=== PATIENT | male | born 1995 | race Caucasian/White ===

== ENCOUNTER 2016-10-17 18:55 | Emergency (ER) | payer OTHER ==
[~2016-10-17] VITALS: Ht 177.8 cm; Wt 69.0 kg
[2016-10-17 19:08] VITALS: Ht 177.8 cm; Wt 69.0 kg
[2016-10-17] MEDS ORDERED: HYDR-3011 PO (19:23)
[2016-10-17] MEDS ORDERED: DOXY100T20 PO (19:23)
--- NOTE | 2016-10-17 19:28 | ERD ---
ER Documentation Chief Complaint Date/Time DATE: 10/17/16 TIME: 19:25 Chief Complaint swollen bug latoyae on his left arm HPI 21-year-old male presents here in emergency department for complaints of an insect bite on the left upper arm started yesterday. Patient's complaining of itching and pain, throbbing pain, 6/10 scale, is worse upon touching the area. Patient did not take any medications up symptoms. Patient denies any numbness or tingling. No recent trauma, denies hiking recently. Patient denies any encounter with deers. ROS All systems reviewed and are negative except as per history of present illness. Medications Home Meds Active Scripts Hydroxyzine Hcl* (Hydroxyzine Hcl*) 25 Mg Tablet, 25 MG PO Q8H Y for ITCHING, # 30 TAB Prov:CHELSEA PEREZ NP 10/17/16 Doxycycline Hyclate* (Doxycycline Hyclate*) 100 Mg Tablet.dr, 100 MG PO BID for 21 Days, TAB Prov:CHELSEA PEREZ NP 10/17/16 Allergies Allergies: Coded Allergies: No Known Allergy (Unverified , 10/17/16) PMhx/Soc Medical and Surgical Hx: pt denies Medical Hx, pt denies Surgical Hx FmHx Family History: No coronary disease, No diabetes, No other Physical Exam Vitals Vital Signs Date Time Temp Pulse Resp B/P Pulse Ox O2 Delivery O2 Flow Rate FiO2 10/17/16 19:08 98.2 80 20 104/50 98 Physical Exam GENERAL: The patient is well developed and appropriate for usual state of health, in no apparent distress. CHEST: Clear to auscultation bilaterally. There are no rales, wheezes or rhonchi. HEART: Regular rate and rhythm. No murmurs, clicks, rubs or gallops. No S3 or S4. ABDOMEN: Soft, nontender and nondistended. Good bowel sounds. No rebound or guarding. No gross peritonitis. No gross organomegaly or masses. No Najera sign or McBurney point tenderness. BACK: No midline or flank tenderness. EXTREMITIES: Equal pulses bilaterally. There is no peripheral clubbing, cyanosis or edema. No focal swelling or erythema. Full range of motion. Grossly neurovascularly intact. NEURO: Alert and oriented. Cranial nerves 2-12 intact. Motor strength in all 4 extremities with 5/5 strength. Sensation grossly intact. Normal speech and gait. SKIN: No target lesion on the left upper arm, mild tenderness on palpation, patient seemed to be consistent with erythema migrans. There is no apparent ecchymosis or petechia. The skin is warm and dry. HEMATOLOGIC AND LYMPHATIC: There is no evidence of excessive bruising or lymphedema. No gross cervical, axillary, or inguinal lymphadenopathy. Procedures/MDM Medical decision making: Patient's rash nonspecific at this time of having infected insect bite, can be early symptoms of Lyme disease, patient's rash appears to be target-like lesion erythema migrans, no symptoms of neurovascular compromise, no symptoms of neuromuscular emergencies, no symptoms of sepsis at this time. Patient was given for hydroxyzine, doxycycline, is advised to follow- up with primary care doctor in 2-3 days for reevaluation of symptoms, patient was given instructions about worsening symptoms of Lyme disease, to return to emergency department if symptoms arise. Patient is advised to return to emergency department for any worsening symptoms. Departure Diagnosis: Primary Impression: Infected insect bite Encounter type: initial encounter Qualified Code: W57.XXXA - Infected insect bite, initial encounter Condition: Stable Patient Instructions: Preventing Lyme Disease, Insect Sting/Bite, Infected, Lyme Disease CHELSEA PEREZ NP October 17, 2016 19:28
== END 2016-10-17 19:28 | disposition home or self-care (01) ==
LOC: E/R 18:55
DX: S40.862A Insect bite (nonvenomous) of left upper arm, initial encounter (principal); W57.XXXA Bitten or stung by nonvenomous insect and other nonvenomous arthropods, initial encounter; Y92.9 Unspecified place or not applicable
CPT/HCPCS: 99284

== ENCOUNTER 2016-12-02 14:29 | Emergency (ER) | payer OTHER ==
[~2016-12-02] VITALS: Ht 165.1 cm; Wt 68.5 kg
[~2016-12-02 14:29] MED LIST: DOXY100T20 PO; HYDR-3011 PO
[2016-12-02 14:33] VITALS: Ht 165.1 cm; Wt 68.5 kg
[2016-12-02] MEDS ORDERED: CETI10CA PO (14:43)
[2016-12-02] MEDS ORDERED: AMOX1TAB10 PO (14:43)
[2016-12-02] MEDS ORDERED: FLUT9.9S NASAL (14:43)
[2016-12-02] MEDS ORDERED: BENZ100C70 PO (14:43)
--- NOTE | 2016-12-02 14:49 | ERD ---
ER Documentation Chief Complaint Date/Time DATE: 12/02/16 TIME: 14:47 Chief Complaint Complains of Ear pain x 4 days HPI 21-year-old male comes to the emergency room with cough for 9 days and left- sided ear pain for the past 3-4 days. He has had a dry cough, no hemoptysis. Itching in the back of his throat, however no pain or trouble swallowing. He denies any fevers, shortness breath, chest pain. Denies recent travel. ROS All systems reviewed and are negative except as per history of present illness. Medications Home Meds Active Scripts Benzonatate* (Tessalon Perle*) 100 Mg Capsule, 100 MG PO Q8H Y for COUGH, #30 CAP Prov:RENATA LOOMIS PA-C 12/02/16 Fluticasone Propionate (Flonase Allergy Relief) 9.9 Ml [place].susp, 1 SPRAY NASAL BID, #1 BOTTLE TO EACH NOSTRIL Prov:RENATA LOOMIS PA-C 12/02/16 Cetirizine Hcl* (Zyrtec*) 10 Mg Capsule, 10 MG PO DAILY, #10 TAB.CHEW Prov:RENATA LOOMIS PA-C 12/02/16 Amoxicillin/Potassium Clav (Amox-Clav 875-125 mg Tablet) 875-125 mg Tab, 1 TAB PO BID for 7 Days, #14 TAB Prov:RENATA LOOMIS PA-C 12/02/16 Hydroxyzine Hcl* (Hydroxyzine Hcl*) 25 Mg Tablet, 25 MG PO Q8H Y for ITCHING, # 30 TAB Prov:CHELSEA PEREZ NP 10/17/16 Doxycycline Hyclate* (Doxycycline Hyclate*) 100 Mg Tablet.dr, 100 MG PO BID for 21 Days, TAB Prov:CHELSEA PEREZ NP 10/17/16 Allergies Allergies: Coded Allergies: No Known Allergy (Unverified , 10/17/16) PMhx/Soc Medical and Surgical Hx: pt denies Medical Hx, pt denies Surgical Hx Hx Alcohol Use: Yes (socially) Hx Substance Use: No Hx Tobacco Use: No Physical Exam Vitals Vital Signs Date Time Temp Pulse Resp B/P Pulse Ox O2 Delivery O2 Flow Rate FiO2 12/02/16 14:33 98.3 103 20 130/73 97 Physical Exam General: Well-developed, well-nourished. The patient appears in no acute distress. HEENT: Head is normocephalic, atraumatic. No scleral icterus. Left tympanic membrane is erythematous and bulging, no perforation, otorrhea or discharge, right ear is unremarkable, mastoids are nontender Neck: Supple. Nontender. Lungs: Clear to auscultation. Normal air movement. Heart: Regular rate and rhythm. S1 and S2 are normal. No murmurs, gallops, or rubs. Abdomen: Nondistended. Extremities: No clubbing or cyanosis. Moving extremities x 4. No weakness. Neurologic: Alert and oriented 3. No focal deficits. Normal speech and gait. Skin: Normal turgor. No rash or lesions. Procedures/MDM The patient is a 21-year-old male who comes in with an acute upper respiratory infection, versus acute bronchitis, and presents a left otitis media. The patient has a differential diagnosis of a viral upper respiratory infection, bacterial upper respiratory infection, bronchitis, pneumonia, pharyngitis, laryngitis, epiglottitis, croup, pneumonia. Patient has a normal pulmonary examination, clear breath sounds, normal pulse oximetry, with no corrective measures needed at this time. Fluids, rest, antipyretics were encouraged. Departure Diagnosis: Primary Impression: Otitis media Additional Impression: Bronchitis Condition: Good Patient Instructions: Bronchitis, Antiobiotic Treatment (Adult), Otitis Media, Abx Tx (Adult) Additional Instructions: Call your primary care doctor TOMORROW for an appointment during the next 1-2 days.See the doctor sooner or return here if your condition worsens before your appointment time. RENATA LOOMIS PA-C Dec 02, 2016 14:49
== END 2016-12-02 14:41 | disposition home or self-care (01) ==
LOC: E/R 14:29
DX: H66.92 Otitis media, unspecified, left ear (principal); J20.9 Acute bronchitis, unspecified
CPT/HCPCS: 99284

== ENCOUNTER 2016-12-08 20:19 | Emergency (ER) | payer OTHER ==
[~2016-12-08] VITALS: Ht 180.3 cm; Wt 67.5 kg
[~2016-12-08 20:19] MED LIST changes: +AMOX1TAB10 PO; +BENZ100C70 PO; +CETI10CA PO; +FLUT9.9S NASAL
[2016-12-08 20:22] VITALS: Ht 180.3 cm; Wt 67.5 kg
[2016-12-08] MEDS ORDERED: PENICILLIN G BENZ 1.2 MIL UNIT SYG IM ONE (21:00)
[2016-12-08] MEDS ORDERED: IBUP-1542 PO (21:08)
[2016-12-08] MEDS ORDERED: IBUPROFEN 600 MG TAB PO ONE (21:30)
[2016-12-08] MEDS ORDERED: ACETAMINOPHEN 325 MG TAB PO ONE (21:30)
--- NOTE | 2016-12-08 21:37 | ERD ---
ER Documentation Chief Complaint Date/Time DATE: 12/08/16 TIME: 21:34 Chief Complaint SORE THROAT DIFFICULTY SWALLOWING, TONSILS SWOLLEN, CHILLS HPI This patient is a 21-year-old male presenting to the emergency department with complaints of odynophagia and dysphagia for 1 day. The patient just finished a course of Augmentin for otitis media. The patient took Shawna-Kelliher with mild relief of symptoms. Symptoms are exacerbated with swallowing. The patient also felt chills. He denies nausea, vomiting, diarrhea, drooling, changes in voice, or other symptoms. ROS All systems reviewed and are negative except as per history of present illness. Medications Home Meds Active Scripts Ibuprofen* (Motrin*) 600 Mg Tab, 600 MG PO Q6, #30 TAB Prov:KATHYA PENDLETON PA-C 12/08/16 Benzonatate* (Tessalon Perle*) 100 Mg Capsule, 100 MG PO Q8H Y for COUGH, #30 CAP Prov:RENATA LOOMIS PA-C 12/02/16 Fluticasone Propionate (Flonase Allergy Relief) 9.9 Ml [place].susp, 1 SPRAY NASAL BID, #1 BOTTLE TO EACH NOSTRIL Prov:RENATA LOOMIS PA-C 12/02/16 Cetirizine Hcl* (Zyrtec*) 10 Mg Capsule, 10 MG PO DAILY, #10 TAB.CHEW Prov:RENATA LOOMIS PA-C 12/02/16 Amoxicillin/Potassium Clav (Amox-Clav 875-125 mg Tablet) 875-125 mg Tab, 1 TAB PO BID for 7 Days, #14 TAB Prov:RENATA LOOMIS PA-C 12/02/16 Hydroxyzine Hcl* (Hydroxyzine Hcl*) 25 Mg Tablet, 25 MG PO Q8H Y for ITCHING, # 30 TAB Prov:CHELSEA PEREZ NP 10/17/16 Doxycycline Hyclate* (Doxycycline Hyclate*) 100 Mg Tablet.dr, 100 MG PO BID for 21 Days, TAB Prov:CHELSEA PEREZ NP 10/17/16 Allergies Allergies: Coded Allergies: No Known Allergy (Unverified , 12/08/16) PMhx/Soc Medical and Surgical Hx: pt denies Medical Hx, pt denies Surgical Hx History of Surgery: No Anesthesia Reaction: No Hx Neurological Disorder: No Hx Respiratory Disorders: No Hx Cardiac Disorders: No Hx Psychiatric Problems: No Hx Miscellaneous Medical Probl: No Hx Alcohol Use: Yes (socially) Hx Substance Use: No Hx Tobacco Use: No Smoking Status: Never smoker Physical Exam Vitals Vital Signs Date Time Temp Pulse Resp B/P Pulse Ox O2 Delivery O2 Flow Rate FiO2 12/08/16 20:22 102.9 117 18 113/63 97 Physical Exam Const: Nontoxic, well-appearing male in no acute distress. Head: Atraumatic Eyes: Normal Conjunctiva ENT: Normal External Ears, Nose and Mouth. There is bilateral tonsillar hypertrophy with excessive exudate present. There is no uvular deviation. The airway is clear on exam. Neck: Full range of motion..~ No meningismus. Resp: Clear to auscultation bilaterally. No signs of respiratory distress. Cardio: Regular rate and rhythm, no murmurs Abd: Soft, non tender, non distended. Normal bowel sounds Skin: No petechiae or rashes Back: No midline or flank tenderness Ext: No cyanosis, or edema Neur: Awake and alert Psych: Normal Mood and Affect Results 24 hrs Current Medications Medications (Trade) Dose Ordered Sig/Landen Route PRN Reason Start Time Stop Time Status Last Admin Dose Admin Penicillin G Benzathine (Bicillin La) 1,200,000 units ONCE ONCE IM 12/08/16 21:00 12/08/16 21:01 DC Ibuprofen (Motrin) 600 mg ONCE ONCE PO 12/08/16 21:30 12/08/16 21:31 DC Acetaminophen (Tylenol Tab) 650 mg ONCE ONCE PO 12/08/16 21:30 12/08/16 21:31 DC Procedures/MDM 21-year-old male presenting to the emergency department with complaints of odynophagia and dysphasia. On physical examination the temperature is elevated at 102.9F. Pulse is tachycardic at 117. I believe this is secondary to acute illness. The patient is young and healthy and I do not believe that widespread infection or sepsis are top differentials at this point. Instead, the patient is treated with ibuprofen and Tylenol and IM penicillin G in the emergency department. He was given ibuprofen to treat pain and swelling as an outpatient. His questions and concerns were addressed. He agreed with the discharge plan and diagnosis. Close follow-up with primary care physician was advised. Strict ER return precautions were discussed. I have low suspicion for peritonsillar abscess, retropharyngeal abscess, sepsis, or other emergent conditions. Departure Diagnosis: Primary Impression: Exudative pharyngitis Condition: Fair Patient Instructions: Pharyngitis, Strep (Presumed) Referrals: [facility] YOU HAVE RECEIVED A MEDICAL SCREENING EXAM AND THE RESULTS INDICATE THAT YOU DO NOT HAVE A CONDITION THAT REQUIRES URGENT TREATMENT IN THE EMERGENCY DEPARTMENT. FURTHER EVALUATION AND TREATMENT OF YOUR CONDITION CAN WAIT UNTIL YOU ARE SEEN IN YOUR DOCTORS OFFICE WITHIN THE NEXT 1-2 DAYS. IT IS YOUR RESPONSIBILITY TO MAKE AN APPOINTMENT FOR [facility]. IF YOU HAVE A PRIMARY DOCTOR --you should call your primary doctor and schedule an appointment IF YOU DO NOT HAVE A PRIMARY DOCTOR YOU CAN CALL OUR PHYSICIAN REFERRAL HOTLINE AT IF YOU CAN NOT AFFORD TO SEE A PHYSICIAN YOU CAN CHOSE FROM THE FOLLOWING [facility] CLINICS [facility] [address] [facility] [address]. [facility] [address] [facility]. [facility] [address] [facility] [facility] [address] [facility] [address] [facility]. [facility]. [address] Additional Instructions: Follow up with your PCP within the next 1-3 days for a repeat evaluation. If you require a referral to a specialist, your Primary Care Provider may be able to provide this for you. In most patient cases, a referral is not required. If you have further questions regarding this matter, please ask your Primary Care Provider. Return the the emergency department immediately if symptoms worsen or change. If you have any questions regarding medications, ask your pharmacist or us before you leave. If any adverse reactions, occur while taking your medications, discontinue the treatment and return to the emergency department immediately. If any new or worsening symptoms, uncontrolled fevers, or other unexplained symptoms occur, return to the emergency department immediately. Take your medications as directed, and complete the entire course of treatment. KATHYA PENDLETON PA-C Dec 08, 2016 21:37
[2016-12-08 22:54] VITALS: BP 110/60; PULSE 94; RESP 18; TEMP 100.2
== END 2016-12-08 22:58 | disposition home or self-care (01) ==
LOC: FTE 20:19
DX: J02.9 Acute pharyngitis, unspecified (principal)
CPT/HCPCS: J0561; Z7610; 96372

== ENCOUNTER 2017-08-02 13:05 | Emergency (ER) | END 2017-08-02 14:21 | disposition home or self-care (01) ==